=== PATIENT | female | born 1990 | race Hispanic/Latino ===

== ENCOUNTER 2017-03-17 08:45 | Inpatient (IN) | payer BC ==
[2017-03-17 09:17] VITALS: BMI 29.8
[2017-03-17] MEDS ORDERED: Oxycodone/Acetaminophen 5/325 mg Tab PO PRN (09:17)
[2017-03-17] MEDS ORDERED: Oxytocin 10 Units/ml Inj IM ONE (09:22)
--- NOTE | 2017-03-17 09:51 | OBADHP ---
Datetime: 03/17/2017 09:25 IP Chief Complaint Other: Pt presented to D via ambulance after an unplanned home delivery Admit Comment, IP Provider: Patient arrive via ambulance stretched from an unplanned preciptious jose e delivery. Mom and baby are stable. Placetna was still undelivered upon arrival to hospital Pelvic Type - PN: Adequate Extremities - PN: Normal Abdomen - PN: Normal Back - PN: Normal Breast - PN: Normal Lungs - PN: Normal Heart - PN: Normal Thyroid - PN: Normal Neurologic - PN: Normal HEENT - PN: Normal General - PN: Normal IP Hx Assessment: The History has been Reviewed and is Current Vital Signs Provider: Reviewed IP Chief Complaint: Other Genitourinary Exam: Normal DTRs - PN: Normal IP Adm Impression: Ruptured Membranes IP Admit Plan: Admit to unit
[2017-03-17] MEDS: Oxycodone/Acetaminophen 5/325 mg Tab PO PRN (18:54)
[2017-03-18 05:39] LABS: HEMATOCRIT 30.2 % (34.0-47.0); MEAN CELL VOLUME 95.1 fl (81.0-99.0); MEAN CORPUSCULAR HEMOGLOBIN 30.8 pg (27.0-31.0); MEAN CORPUSCULAR HGB CONC 32.4 g/dL (33.0-37.0); RED CELL DISTRIBUTION WIDTH 14.2 % (11.5-14.5)
[2017-03-18] MEDS: Oxycodone/Acetaminophen 5/325 mg Tab PO PRN ×2 (14:36→20:58)
--- NOTE | 2017-03-18 21:24 | OBDS ---
DELIVERY PERSONNEL Nurse Supervisor Record Press Certified: Judit Marquez CNM Grain Unloader Machine: Alley Laboy RN MATERNAL INFORMATION Medications in Delivery: none Estimated Blood Loss (ml): 200 Placenta Cultured: No Maternal Complications: Precipitous Labor (<3hrs) RN Comments: patient was admitted to labor and delivered via ambulance s/p home delivery. 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 was plced on warmer and examined by peds Dr Martinez. apgars were reportedly 9 and 9. pitocin 10mg IM was given in left thigh. patient remained in stable condition and tolerated placen ta delivery well. infant placed on mother's chest to continue skin to skin. Provider Comments: Patient presented to L_D via ambulance in [facility] after an unintended home prec iptious delivery. I was NOT at the patient's home. I met the ambulance at the hosptial entrance to [facility]. Upon arrival into the labor and delivery room the placenta was delivered by myself and examin ed and found to be intact with a 3VC. moderate bleeding was noted and 10 units IM pitocin was given. good hemostasis was achieved. a small 1st degree laceration was noted and upon discussion with the francy villalobos, she opted for spontaneous healing vs a vaginal repair. LABOR SUMMARY EDC: 03/25/2017 00:00 No. Babies in Womb: 1 Labor Anesthesia: None LABOR INFORMATION Reason for Induction: Not Applicable Onset of Labor: 03/17/2017 07:00 Group B Beta Strep: Negative (Annotations: 03/04/2017) Steroids Given: None Reason Steroids Not Administered: Not Applicable MEMBRANES Membranes Rupture Method: Spontaneous Amniotic Fluid Color: Clear Amniotic Fluid Amount: Moderate Amniotic Fluid Odor: Normal STAGES OF LABOR Stage 3 hrs: 0 Stage 3 min: 52 Total Time in Labor hrs: 1 Total Time in Labor min: 49 VAGINAL DELIVERY Episiotomy: None Laceration Extension: First Degree Laceration Type: Perineal Other Laceration: vag abrasion Initial Vag Sponge Count: 5 Final Vag Sponge Count: 5 Sponge Count Correct: Yes CSECTION DELIVERY CSection Incision: N/A BABY A INFORMATION Delivery Date/Time: 03/17/2017 07:57 Method of Delivery: Vaginal Born in Route : home : N/A Forceps: N/A Vacuum Extraction: N/A Shoulder Dystocia : No SHOULDER DYSTOCIA BABY A Infant Delivery Date/Time: 03/17/2017 07:57 PRESENTATION/POSITION BABY A Presentation: Cephalic PLACENTA INFORMATION BABY A Placenta Delivery Time : 03/17/2017 08:49 Placenta Method of Delivery: Spontaneous Placenta Status: Delivered INFORMATION BABY A Gestational Age at Delivery: 39.0 Gestational Status: Term Outcome : Liveborn Condition : Stable Sex: Male WEIGHT/LENGTH BABY A Infant Birthweight (gms): 3655 Infant Weight (lb): 8 Infant Weight (oz): 1 CORD INFORMATION BABY A No. Cord Vessels: 3 Cord Blood Taken: No
--- NOTE | 2017-03-18 21:25 | OBDS ---
DELIVERY PERSONNEL Nurse Tax Accounting Assistant Certified: Judit Marquez CNM Hospital Corpsman: Alley Laboy RN MATERNAL INFORMATION Medications in Delivery: none Estimated Blood Loss (ml): 200 Placenta Cultured: No Maternal Complications: Precipitous Labor (<3hrs) RN Comments: patient was admitted to labor and delivered via ambulance s/p home delivery. 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 was plced on warmer and examined by peds Dr Martinez. apgars were reportedly 9 and 9. pitocin 10mg IM was given in left thigh. patient remained in stable condition and tolerated placen ta delivery well. infant placed on mother's chest to continue skin to skin. Provider Comments: Patient presented to L_D via ambulance in [facility] after an unintended home prec iptious delivery. I was NOT at the patient's home. I met the ambulance at the hosptial entrance to [facility]. Upon arrival into the labor and delivery room the placenta was delivered by myself and examin ed and found to be intact with a 3VC. moderate bleeding was noted and 10 units IM pitocin was given. good hemostasis was achieved. a small 1st degree laceration was noted and upon discussion with the francy villalobos, she opted for spontaneous healing vs a vaginal repair. LABOR SUMMARY EDC: 03/25/2017 00:00 No. Babies in Womb: 1 Labor Anesthesia: None LABOR INFORMATION Reason for Induction: Not Applicable Onset of Labor: 03/17/2017 07:00 Group B Beta Strep: Negative (Annotations: 03/04/2017) Steroids Given: None Reason Steroids Not Administered: Not Applicable MEMBRANES Membranes Rupture Method: Spontaneous Amniotic Fluid Color: Clear Amniotic Fluid Amount: Moderate Amniotic Fluid Odor: Normal STAGES OF LABOR Stage 3 hrs: 0 Stage 3 min: 52 Total Time in Labor hrs: 1 Total Time in Labor min: 49 VAGINAL DELIVERY Episiotomy: None Laceration Extension: First Degree Laceration Type: Perineal Other Laceration: vag abrasion Initial Vag Sponge Count: 5 Final Vag Sponge Count: 5 Sponge Count Correct: Yes CSECTION DELIVERY CSection Incision: N/A BABY A INFORMATION Delivery Date/Time: 03/17/2017 07:57 Method of Delivery: Vaginal Born in Route : home : N/A Forceps: N/A Vacuum Extraction: N/A Shoulder Dystocia : No SHOULDER DYSTOCIA BABY A Infant Delivery Date/Time: 03/17/2017 07:57 PRESENTATION/POSITION BABY A Presentation: Cephalic PLACENTA INFORMATION BABY A Placenta Delivery Time : 03/17/2017 08:49 Placenta Method of Delivery: Spontaneous Placenta Status: Delivered INFORMATION BABY A Gestational Age at Delivery: 39.0 Gestational Status: Term Outcome : Liveborn Condition : Stable Sex: Male WEIGHT/LENGTH BABY A Infant Birthweight (gms): 3655 Infant Weight (lb): 8 Infant Weight (oz): 1 CORD INFORMATION BABY A No. Cord Vessels: 3 Cord Blood Taken: No
--- NOTE | 2017-03-18 21:27 | OBDCSUM ---
Datetime: 03/18/2017 21:25 Discharged to, Provider: Home Follow up at, Provider: Private MD Disch Instr Activity: Normal activity Disch Instr Diet: Regular Discharge Instructions, Provider: Routine instructions given Discharge Diagnosis, Provider: Term Delivered Discharge Time: 03/19/2017 11:00 Follow up in weeks, Provider: 6 weeks Disch Referrals: None Disch Activity Restrictions: No exercising Discharge Diagnosis Prov Other: Unplanned home delivery Contraception after Delivery: Not Planning to Use
--- NOTE | 2017-03-18 21:27 | OBPPN ---
Datetime: 03/18/2017 21:24 PP Pain Prov: Within normal limits PP Nausea Prov: Denies PP Flatus Prov: Yes PP BM Prov: Yes PP Breasts Prov: Normal PP Heart Prov: Normal PP Lungs Prov: Normal PP Abdomen/Uterus Prov: Normal PP Lochia Prov: Normal PP Vulva/Perineum Prov: Normal PP CVA Tenderness Prov: Normal PP Extremities Prov: Normal PP C/S Incision Prov: Not Applicable PP Progress Prov: Normal PP Impression Prov: Normal progression PP Plan Prov: Continue present management IP PP Procedures: None Vital Signs Provider PP: Reviewed
[2017-03-19] MEDS: Oxycodone/Acetaminophen 5/325 mg Tab PO PRN (07:33)
--- NOTE | 2017-03-19 07:54 | NBDCN ---
Datetime: 03/19/2017 07:52 Nsy Prov Gen Appearance: Within Normal Limits Nsy Prov Skin: Within Normal Limits Nsy Prov Neuro: Normal Tone; Azael; Grasp; Root; Suck Nsy Prov Musculoskeletal: Within Normal Limits; Full Range of Motion; Spontaneous Movement All Extre mities; Intact Clavicles; Clavicles without Crepitus; Gluteal Folds Symmetrical; Spine Within Normal Limits; No Sacral Dimple/Cyst Nsy Prov Head: Normal Fontanelles; Normocephalic; Sutures WNL Nsy Prov EENT: Mouth Within Normal Limits; Ears Within Normal Limits; Eyes Within Normal Limits; Eye s Red Reflex Bilaterally; Nose Within Normal Limits; Face Within Normal Limits Nsy Prov Cardiovascular: Within Normal Limits; Normal Pulses Nsy Prov Respiratory: Within Normal Limits Nsy Prov GI: Within Normal Limits; Soft; Normal Liver; Non Palpable Spleen; Patent Anus Nsy Prov Umbilicus: Within Normal Limits; Three Vessel Cord Nsy Prov : Normal Male Genitalia Nsy Prov Details: Circ. Wound Dry Nsy Prov Discharge: Discharge Home Today; Healthy Term [place]; Vital Signs Appropriate; Bonding [place] ropriately Nsy Prov Disch Comments: Well baby boy. Follow up in Weeks NB: 1 Week Follow up Appt with NB: Office Datetime: 03/18/2017 21:25 Disch Follow Up With: Private MD Datetime: 03/17/2017 09:00 Blood Type: O POS
[2017-03-19 19:13] VITALS: BP 133/67; PULSE 77; RESP 18; TEMP 98.1
== END 2017-03-19 12:50 | disposition home or self-care (01) | DRG 775 ==
LOC: H.EROB2 08:45 → H.L&D 09:54 → H.OB/GYN 11:41
PROVIDERS: ADMIT Advanced Practice Midwife; ATTEND Advanced Practice Midwife
PROC: 10E0XZZ Delivery of Products of Conception, External Approach (ICD-10-PCS; principal; 2017-03-17)
PROC: 4A1HXCZ Monitoring of Products of Conception, Cardiac Rate, External Approach (ICD-10-PCS; 2017-03-17)
PROC: 0HQ9XZZ Repair Perineum Skin, External Approach (ICD-10-PCS; 2017-03-17)
DX: O62.3 Precipitate labor (principal); O70.0 First degree perineal laceration during delivery; Z37.0 Single live birth; Z3A.39 39 weeks gestation of pregnancy